=== PATIENT | female | born 1975 ===

== ENCOUNTER 2017-04-07 08:25 | Emergency (ER) | payer OTHER ==
[2017-04-07 09:02] VITALS: BP 113/76; PULSE 80; RESP 18; TEMP 96; O2SAT 100
--- NOTE | 2017-04-07 09:32 | ED PDOC ---
HPI: Back Time Seen by Provider: 04/07/17 08:51 Chief Complaint (Nursing): Back Pain Chief Complaint (Provider): Neck Pain History Per: Patient History/Exam Limitations: no limitations Onset/Duration Of Symptoms: Other (x1 week) Current Symptoms Are (Timing): Still Present Additional Complaint(s): Corrine Carr is a 41 year old female with no past medical history who presents to the ED complaining of right sided neck pain lasting for a week. Patient states she woke up with the pain. Confirms pain is exacerbated on movement and turning of head. Denies trauma. States she is taking Ibuprofen with relief, but pain returns. Patient states they have history of a muscle inflammatory problem. Also states sometimes the right side of her face feels numb. PMD: Provider TRUNG Past Medical History Reviewed: Historical Data, Nursing Documentation, Vital Signs Vital Signs: Last Vital Signs Temp 96 F L 04/07/17 08:49 Pulse 80 04/07/17 08:49 Resp 18 04/07/17 08:49 BP 113/76 04/07/17 08:49 Pulse Ox 100 04/07/17 08:49 - Medical History Other PMH: Muscle inflammatory problem - Family History Family History: States: Unknown Family Hx - Social History Current smoker - smoking cessation education provided: Yes (light) Alcohol: Social Drugs: Denies - Home Medications Home Medications: Ambulatory Orders Medication Instructions Recorded Naproxen 1 tab PO BID PRN #14 tab 12/15/15 diaZEpam [Valium] 5 mg PO Q8 PRN #8 tab 12/15/15 Cyclobenzaprine [Cyclobenzaprine 10 mg PO TID PRN #15 tab 04/07/17 HCl] Naproxen [Naprosyn] 500 mg PO BID PRN #15 tablet 04/07/17 - Allergies Allergies/Adverse Reactions: Allergies Allergy/AdvReac Type Severity Reaction Status Date / Time No Known Allergies Allergy Verified 04/07/17 08:48 Review of Systems ROS Statement: Except As Marked, All Systems Reviewed And Found Negative Musculoskeletal: Positive for: Neck Pain (right sided, worse upon movement or head turning) Physical Exam - Reviewed Nursing Documentation Reviewed: Yes Vital Signs Reviewed: Yes - Physical Exam Appears: Positive for: In Acute Distress (Mild painful) Head Exam: Positive for: ATRAUMATIC, NORMAL INSPECTION, NORMOCEPHALIC Skin: Positive for: Normal Color, Warm, Dry Eye Exam: Positive for: EOMI, Normal appearance, PERRL Neck: Positive for: Normal (with full range of motion) Cardiovascular/Chest: Positive for: Regular Rate, Rhythm. Negative for: Murmur Respiratory: Positive for: Normal Breath Sounds. Negative for: Respiratory Distress Gastrointestinal/Abdominal: Positive for: Normal Exam, Bowel Sounds, Soft. Negative for: Tenderness Back: Positive for: Normal Inspection, Other (Tenderness from right posterior neck to right posterior upper back along trapezius) Extremity: Positive for: Normal ROM. Negative for: Pedal Edema, Deformity Neurologic/Psych: Positive for: Alert, Oriented - ECG O2 Sat by Pulse Oximetry: 100 (RA) Pulse Ox Interpretation: Normal Medical Decision Making Medical Decision Making: Time: 09:06 Initial Impression: Muscular pain, muscle spasms Plan: --CT Cervical spine w/o contrast --Flexeril 10 mg PO --Toradol 30 mg IM --Reevaluation Time: 12:51 CT Cervical Spine: FINDINGS: VERTEBRAE: There is straightening of the cervical spine with loss of normal cervical lordosis. Vertebral alignment is normal. Vertebral height is maintained. There is no acute fracture or traumatic anterior listhesis. The craniocervical junction is normal. The atlantoaxial joint is normal. DISCS/SPINAL CANAL/NEURAL FORAMINA: Evaluation of individual disc levels demonstrate: C2-3: No large disc herniation, neural foraminal or spinal canal stenosis. C3-4: Disc osteophyte complex with resultant mild right neural foraminal stenosis. No spinal canal stenosis. C4-5: Central disc protrusion indents the ventral thecal sac without central spinal canal stenosis. Asymmetric mild right uncovertebral joint hypertrophy contributes to mild right neural foraminal stenosis. C5-6: No large disc herniation, neural foraminal or spinal canal stenosis. C6-7: No large disc herniation, neural foraminal or spinal canal stenosis. C7-T1: No large disc herniation, neural foraminal or spinal canal stenosis. PARASPINAL SOFT TISSUES: No prevertebral soft tissue thickening. The paraspinous soft tissues are normal. OTHER FINDINGS: None. IMPRESSION: No acute fracture or traumatic anterior listhesis. Mild multilevel degenerative disc disease, worse at C4-5 with a central disc protrusion without central spinal canal stenosis. Also noted is right uncovertebral joint hypertrophy and mild right neural foraminal stenosis. Straightening of the cervical spine may be positional or related to muscle spasm. Clinical Impression: Neck muscle spasm Upon provider reevaluation patient is medically stable, and requires no further treatment in the ED at this time. Patient will be discharged with Rx for naproxen and cyclobenzaprine. Counseling was provided and all questions were answered regarding diagnosis and need for follow up with PMD. There is agreement to discharge plan. Return if symptoms persist or worsen. Scribe Attestation: Documented by Randy Stephens acting as a scribe for Tamy Betancur MD. Scribe Attestation: All medical record entries made by the Scribe were at my direction and personally dictated by me. I have reviewed the chart and agree that the record accurately reflects my personal performance of the history, physical exam, medical decision making, and the department course for this patient. I have also personally directed, reviewed, and agree with the discharge instructions and disposition. Disposition - Clinical Impression Clinical Impression: Neck muscle spasm - Patient ED Disposition Is Patient to be Admitted: No Counseled Patient/Family Regarding: Studies Performed, Diagnosis, Need For Followup, Rx Given - Disposition Referrals: [facility] [Outside] Disposition: Routine/Home Disposition Time: 13:34 Condition: STABLE Prescriptions: Cyclobenzaprine [Cyclobenzaprine HCl] 10 mg PO TID PRN #15 tab PRN Reason: Pain Naproxen [Naprosyn] 500 mg PO BID PRN #15 tablet PRN Reason: Pain, Moderate (4-7) Instructions: Muscle Spasm (ED) Forms: [employer] (Lebanese) Print Language: TELUGU
--- NOTE | 2017-04-07 12:52 | CT ---
PROCEDURE: CT Cervical Spine without contrast HISTORY: Right-sided neck pain COMPARISON: None available. TECHNIQUE: Axial computed tomography images were obtained of the cervical spine without the use of intravenous contrast. Coronal and sagittal reformatted images were created and reviewed. Radiation dose: Total exam DLP = 388.52 mGy-cm. This CT exam was performed using one or more of the following dose reduction techniques: Automated exposure control, adjustment of the mA and/or kV according to patient size, and/or use of iterative reconstruction technique. FINDINGS: VERTEBRAE: There is straightening of the cervical spine with loss of normal cervical lordosis. Vertebral alignment is normal. Vertebral height is maintained. There is no acute fracture or traumatic anterior listhesis. The craniocervical junction is normal. The atlantoaxial joint is normal. DISCS/SPINAL CANAL/NEURAL FORAMINA: Evaluation of individual disc levels demonstrate: C2-3: No large disc herniation, neural foraminal or spinal canal stenosis. C3-4: Disc osteophyte complex with resultant mild right neural foraminal stenosis. No spinal canal stenosis. C4-5: Central disc protrusion indents the ventral thecal sac without central spinal canal stenosis. Asymmetric mild right uncovertebral joint hypertrophy contributes to mild right neural foraminal stenosis. C5-6: No large disc herniation, neural foraminal or spinal canal stenosis. C6-7: No large disc herniation, neural foraminal or spinal canal stenosis. C7-T1: No large disc herniation, neural foraminal or spinal canal stenosis. PARASPINAL SOFT TISSUES: No prevertebral soft tissue thickening. The paraspinous soft tissues are normal. OTHER FINDINGS: None. IMPRESSION: No acute fracture or traumatic anterior listhesis. Mild multilevel degenerative disc disease, worse at C4-5 with a central disc protrusion without central spinal canal stenosis. Also noted is right uncovertebral joint hypertrophy and mild right neural foraminal stenosis. Straightening of the cervical spine may be positional or related to muscle spasm.
== END 2017-04-07 16:00 | disposition home or self-care (01) ==
LOC: H.ER 08:25
DX: M62.838 Other muscle spasm (principal); M50.221 Other cervical disc displacement at C4-C5 level
CPT/HCPCS: 72125; 96372; 99281; J1885

== ENCOUNTER 2018-06-04 07:57 | Emergency (ER) | payer OTHER ==
[2018-06-04 08:03] VITALS: O2SAT 100
--- NOTE | 2018-06-04 09:24 | ED PDOC ---
HPI: Abdomen Time Seen by Provider: 06/04/18 08:23 Chief Complaint (Nursing): Abdominal Pain Chief Complaint (Provider): Abdominal Pain History Per: Patient History/Exam Limitations: no limitations Onset/Duration Of Symptoms: Days (x3 months) Current Symptoms Are (Timing): Still Present Location Of Pain/Discomfort: RLQ Quality Of Discomfort: "Pain" Additional Complaint(s): 42 y/o female with no significant PMHx presents to the ED for evaluation of abdominal pain, onset three months ago. Patient reports she has not menstruated since onset of pain. Patient additionally reports of taking a test one month ago that resulted negative. Patient states pain is located in the right lower quadrant. Patient reports of developing very light dark vaginal bleeding 3 days ago. PMD: none provided Past Medical History Reviewed: Historical Data, Nursing Documentation, Vital Signs Vital Signs: Last Vital Signs Temp 98.7 F 06/04/18 08:02 Pulse 77 06/04/18 08:02 Resp 18 06/04/18 08:02 BP 137/91 H 06/04/18 08:02 Pulse Ox 100 06/04/18 08:02 - Medical History PMH: No Chronic Diseases Denies: Chronic Kidney Disease - Surgical History Surgical History: No Surg Hx - Family History Family History: States: Unknown Family Hx - Home Medications Home Medications: Ambulatory Orders Medication Instructions Recorded Naproxen 1 tab PO BID PRN #14 tab 12/15/15 diaZEpam [Valium] 5 mg PO Q8 PRN #8 tab 12/15/15 Cyclobenzaprine [Cyclobenzaprine 10 mg PO TID PRN #15 tab 04/07/17 HCl] Naproxen [Naprosyn] 500 mg PO BID PRN #15 tablet 04/07/17 Naproxen [Naprosyn] 500 mg PO BID PRN #15 tablet 06/04/18 Nitrofurantoin Macrocrystals 100 mg PO BID #13 cap 06/04/18 [Macrobid] - Allergies Allergies/Adverse Reactions: Allergies Allergy/AdvReac Type Severity Reaction Status Date / Time No Known Allergies Allergy Verified 04/07/17 08:48 Review of Systems ROS Statement: Except As Marked, All Systems Reviewed And Found Negative Gastrointestinal: Positive for: Abdominal Pain (RIGHT LOWER) Physical Exam - Reviewed Nursing Documentation Reviewed: Yes Vital Signs Reviewed: Yes - Physical Exam Appears: Positive for: No Acute Distress Head Exam: Positive for: ATRAUMATIC Skin: Positive for: Normal Color, Warm, Dry Eye Exam: Positive for: Normal appearance, EOMI, PERRL Neck: Positive for: Normal, Painless ROM Cardiovascular/Chest: Positive for: Regular Rate, Rhythm. Negative for: Murmur Respiratory: Positive for: Normal Breath Sounds. Negative for: Respiratory Distress Gastrointestinal/Abdominal: Positive for: Tenderness (RLQ tenderness) Extremity: Positive for: Normal ROM. Negative for: Deformity Neurologic/Psych: Positive for: Alert, Oriented. Negative for: Motor/Sensory Deficits - ECG O2 Sat by Pulse Oximetry: 100 (RA) Pulse Ox Interpretation: Normal Medical Decision Making Medical Decision Making: Time: 838 Plan: -- ED Urine -- ED Urine Dipstick Time: 916 Plan: -- Motrin 600 mg PO -- US Pelvis/Transvaginal Time: 1215 US RESULTS FINDINGS: UTERUS: Measures 9.0 x 5.3 x 4.0 cm. Normal in size and appearance. No fibroid or other mass lesion seen. ENDOMETRIUM: Measures 14 mm in diameter. Unremarkable. CERVIX: No cervical abnormality identified. RIGHT OVARY: Measures 2.9 x 1.8 x 1.9 cm. No solid mass. Normal flow. Cyst with irregular border and thin internal septation, 1.4 x 1.4 x 1.9 cm. Recommend followup transvaginal pelvic ultrasound examination in 6-12 weeks.. LEFT OVARY: Measures 2.9 x 2.4 x 2.0 cm. No solid mass. Normal flow. FREE FLUID: No significant free fluid noted. OTHER FINDINGS: None. IMPRESSION: Minimally complicated right ovarian cyst. Recommend followup transvaginal pelvic ultrasound examination 6-12 weeks. Otherwise unremarkable examination. Scribe Attestation: Documented by Milli Moyer, acting as a scribe for Tamy Betancur MD. Provider Scribe Attestation: All medical record entries made by the Scribe were at my direction and personally dictated by me. I have reviewed the chart and agree that the record accurately reflects my personal performance of the history, physical exam, medical decision making, and the department course for this patient. I have also personally directed, reviewed, and agree with the discharge instructions and disposition. Disposition - Clinical Impression Clinical Impression: UTI (urinary tract infection), Ovarian cyst - Disposition Referrals: [facility] [Outside] Disposition: Routine/Home Disposition Time: 14:17 Condition: STABLE Prescriptions: Naproxen [Naprosyn] 500 mg PO BID PRN #15 tablet PRN Reason: Pain, Moderate (4-7) Nitrofurantoin Macrocrystals [Macrobid] 100 mg PO BID #13 cap Instructions: Urinary Tract Infections in Adults, Ovarian Cysts Forms: [facility] (Frisian) Print Language: DIVEHI
--- NOTE | 2018-06-04 12:20 | US ---
Date of service: 06/04/2018 HISTORY: RLQ pain COMPARISON: None available. TECHNIQUE: Transabdominal and transvaginal FINDINGS: UTERUS: Measures 9.0 x 5.3 x 4.0 cm. Normal in size and appearance. No fibroid or other mass lesion seen. ENDOMETRIUM: Measures 14 mm in diameter. Unremarkable. CERVIX: No cervical abnormality identified. RIGHT OVARY: Measures 2.9 x 1.8 x 1.9 cm. No solid mass. Normal flow. Cyst with irregular border and thin internal septation, 1.4 x 1.4 x 1.9 cm. Recommend followup transvaginal pelvic ultrasound examination in 6-12 weeks.. LEFT OVARY: Measures 2.9 x 2.4 x 2.0 cm. No solid mass. Normal flow. FREE FLUID: No significant free fluid noted. OTHER FINDINGS: None. IMPRESSION: Minimally complicated right ovarian cyst. Recommend followup transvaginal pelvic ultrasound examination 6-12 weeks. Otherwise unremarkable examination.
[2018-06-04 13:27] LABS: SQUAMOUS EPITHIAL 9 /hpf (0-5); URINE BACTERIA OCC (<OCC); URINE BILIRUBIN NEGATIVE (NEGATIVE); URINE BLOOD LARGE (NEGATIVE); URINE CLARITY SLIGHTY-CLOUDY (Clear); URINE COLOR STRAW (YELLOW); URINE GLUCOSE (UA) NEG (NEGATIVE); URINE LEUKOCYTE ESTERASE SMALL Leu/uL (Negative); URINE PROTEIN NEGATIVE (NEGATIVE); URINE UROBILINOGEN 0.2-1.0 mg/dL (0.2-1.0)
[2018-06-04 14:42] VITALS: BP 126/77; PULSE 90; RESP 16; TEMP 98.2
== END 2018-06-04 14:41 | disposition home or self-care (01) ==
LOC: H.ER 07:57
DX: N39.0 Urinary tract infection, site not specified (principal); N83.201 Unspecified ovarian cyst, right side